=== PATIENT | female | born 1980 | race Caucasian/White ===

== ENCOUNTER 2020-12-14 14:35 | Emergency (ER) | payer OTHER, SELFPAY ==
--- NOTE | ~2020-12-14 | XR_ITS ---
EXAMINATION: XR CHEST CLINICAL INFORMATION: Chest tightness COMPARISON: None TECHNIQUE: 2 views of the chest were obtained. FINDINGS: No significant abnormality is noted involving the heart, lungs, mediastinum, bony thorax or soft tissues. XR/XR chest 2V IMPRESSION: Unremarkable examination.
--- NOTE | 2020-12-14 14:37 | ECG_ITS ---
Test Reason : SOB Blood Pressure : / mmHG Vent. Rate : 068 BPM Atrial Rate : 068 BPM P-R Int : 124 ms QRS Dur : 084 ms QT Int : 406 ms P-R-T Axes : 021 035 014 degrees QTc Int : 431 ms Normal sinus rhythm with sinus arrhythmia Normal ECG No previous ECGs available Referred By: Generic ED Physician Electronically Signed By:OUMOU DENIS MD
[2020-12-14 14:55] VITALS: BP 125/78; PULSE 65; RESP 18; TEMP 37; O2SAT 100; BMI 29.8
[2020-12-14 16:02] LABS: MANUAL DIFF FLAG NO
[2020-12-14 16:04] LABS: Basophils Percent Auto 0.2 % (0-2); Eosinophils Absolute Auto 0.2 X10*3/uL (0.0-0.4); Eosinophils Percent Auto 2.5 % (0-4); Hemoglobin 12.5 g/dl (12.0-16.0); Imm Gran Abs Auto 0.02 X10*3/uL (0.00-0.03); Imm Gran Pct Auto 0.2 % (0.0-0.4); Lymphocytes Absolute Auto 2.1 X10*3/uL (1.2-4.9); Lymphocytes Percent Auto 24.7 % (20-40); Mean Corpuscular HGB Conc 33.8 g/dl (31.0-35.0); Mean Corpuscular Hemoglobin 32.1 pg (27.0-33.0); Mean Corpuscular Volume 95.1 fL (80-98); Monocytes Absolute Auto 0.7 X10*3/uL (0.1-1.2); Neutrophils Absolute Auto 5.4 X10*3/uL (2.0-8.3); Neutrophils Percent Auto 64.4 % (45-73); Platelet Count 191 X10*3/uL (160-400); Red Blood Count 3.89 X10*6/uL (4.20-5.50); Red Cell Distribution Width 13.1 % (11.0-16.0); White Blood Count 8.4 X10*3/uL (4.8-10.8)
[2020-12-14 16:32] LABS: Alanine Aminotransferase 19 U/L (0-31); Albumin Level 4.2 g/dL (3.5-5.0); Alkaline Phosphatase 52 U/L (39-117); Anion Gap 12 (12-20); Aspartate Amino Transferase 17 U/L (5-31); Bilirubin Total 0.3 mg/dL (0.0-1.0); Blood Urea Nitrogen 13 mg/dL (9-16); Calcium 8.7 mg/dL (8.4-10.2); Carbon Dioxide 24 mmol/L (22-29); Chloride 108 mmol/L (96-108); Creatinine Clr Calc Pharmacy 113.3; Estimated Glomerular Filt Rate > 60; Glucose Random 105 mg/dL (60-115); Potassium 3.8 mmol/L (3.3-5.1); Sodium 140 mmol/L (135-145)
[2020-12-14 16:36] LABS: Troponin-I High Sensitivity < 3.5 ng/L (<3.5-17.0)
[2020-12-14 17:53] VITALS: BP 119/68; PULSE 61; RESP 12; TEMP 36.8; O2SAT 100
--- NOTE | 2020-12-14 18:16 | ED_ITS ---
HPI - General Adult General Chief complaint: General Medical Stated complaint: dizziness, lt arm pain Time Seen by Provider: 12/14/20 17:32 Source: patient Mode of arrival: ambulatory Limitations: no limitations History of Present Illness HPI narrative: 40-year-old female with a past medical history of asthma, solit randy kidney, migraines, seasonal allergies here with complaints of episode of nausea, clammy hands, chest tightness, dizziness at approximately 02:30 this afternoon while driving in her car which lasted 45 minutes and self-resolved. She tells me she also had some associated left arm pain. Patient tells me now all symptoms are resolved and she is feeling much improved. No associated shortness of breath, leg swelling or pain, cough, fevers, chills. Related Data Allergies Allergy/AdvReac Type Severity Reaction Status Date / Time latex Allergy Hives Verified 12/14/20 14:55 sulfamethoxazole Allergy Hives Verified 12/14/20 14:55 [From ] trimethoprim [From ] Allergy Hives Verified 12/14/20 14:55 NSAIDS (Non-Steroidal AdvReac Unknown Verified 12/14/20 14:55 Anti-Inflamma Review of Systems Review of Systems: Yes all other systems are reviewed and are negative Constitutional: Constitutional: Reports no additional constitutional complaints, Denies body ache(s), Denies chills, Denies fever(s), Denies headache(s) and Denies weakness Comments: Diaphoresis Eyes: Eyes: Reports no additional eye complaints and Denies change in vision ENT: Reports system reviewed and no additional complaints, except as documented, Reports dizziness, Denies headache(s), Denies nasal congestion, Denies nasal discharge and Denies neck pain Cardiovascular: Cardiovascular: Reports no additional cardiovascular complai nts, Reports chest pain, Denies leg edema and Denies dyspnea Respiratory: Respiratory: Reports no additional respiratory complaints, Denies cough and Denies dyspnea Gastrointestinal: Gastrointestinal: Reports no additional gastrointestinal complaints, Denies abdominal pain, Denies diarrhea, Reports nausea and Denies vomiting Genitourinary: Genitourinary: Reports no additional female genitourinary complaints and Denies urinary incontinence Musculoskeletal: Musculoskeletal: Reports no additional musculoskeletal complaints, Denies back pain, Denies arthralgias, Denies joint swelling, Denies neck pain, Denies numbness and Denies tingling Integumentary/Breasts: Skin/Breast: Reports system reviewed and no additional complaints, except as docu and Denies rash Neurologic: Reports system reviewed and no additional complaints, except as documented, Denies Abnormal speech present, Reports dizziness, Denies headache(s), Denies numbness, Denies tingling and Denies weakness PMFSH Past Medical History Attestation statement: The following information was validated with the patient. Source: old records reviewed and nursing notes reviewed Medical History Asthma Solitary kidney Social History Social History Advance Directives: No Advance Directives Information Provided: Yes Patient : No Physical Exam Vital Signs: Vital Signs: Last Vital Signs Temp 98.2 F 12/14/20 17:53 Pulse 61 12/14/20 17:53 Resp 12 12/14/20 17:53 BP 119/68 12/14/20 17:53 Pulse Ox 100 12/14/20 17:53 Body Mass Index 29.8 Const: General: cooperative, healthy appearing, comfortable and no acute distress Orientation/consciousness: patient oriented x3 Limitations: no limitations HENMT: Head: Yes normal to inspection Ears: hearing grossly normal bilaterally General nose exam: Normal external nose present Face and sinus: Yes normal facial exam Mouth: Normal oral and palatal mucosa present Throat: Yes posterior oropharynx normal Eyes: General: appearance normal, both eyes and all related structures Pupils: Equal, round and reactive pupils present Neck: Neck: Yes normal visual inspection, Yes full ROM, Yes no lymphadenopathy and Yes no meningeal signs Chest: Chest palpation & inspection: normal inspection of the chest Resp: Effort & Inspection: normal respiratory effort Auscultation: clear to auscultation bilaterally Cardio: Rate: regular rate Rhythm: regular rhythm Peripheral pulses: Peripheral pulses 2+ throughout GI: Inspection: Yes normal to inspection Palpation (GI): Soft to palpation and nontender Auscultation: normal bowel sounds Back/Spine/Pelvis: Thoracic/Lumbar Spine: thoracic and lumbar spine normal to inspection Skin: General skin exam: no rashes or lesions noted Neuro: General: patient oriented x3, no meningeal signs, no focal motor deficits and normal sensation to monofilament Cranial nerves: Yes CN's II-XII intact bilaterally, Yes Equal, round and reactive pupils present, Yes Bilaterall y intact EOM present, Yes Nystagmus not present, Yes Normal facial strength present and Yes Midline tongue present Cognition (Neuro): normal cognition Speech: No Abnormal speech present Gait exam (Neuro): Normal gait present Motor exam (neuro): 5/5 motor strength present throughout Sensory Exam: Normal double simultaneous stimulation for sensation Extrem: General: Yes normal to inspection, Yes no pedal edema and Yes no calf tenderness Course Course Course Narrative: 40-year-old female here with episode of nausea, clammy hands, chest tightness radiating into left arm, dizziness which occurred at 02:30 this afternoon while at rest and lasted approximately 45 minutes. All symptoms resolved while here in the emergency department. Will plan for chest x-ray, EKG, troponin x2. 1914-EKG, chest x-ray and labs unremarkable earlier troponin x2 negative. No symptoms since being here. Stable vital signs. Likely anxiety. Reviewed plan with the patient. Worrisome signs and symptoms when to return to the emergency department. Comfortable discharge home. Medical Decision Making MDM Narrative Medical decision making narrative: Anxiety, ACS PE less likely with perc 0 Less likely ACS with troponin x2 negative EKG which shows no ischemic changes a nd atypical chest pain Medical Records Medical records reviewed: Yes I reviewed the patient's medical records. Lab Data Lab results reviewed: Yes I reviewed the patient's lab results. Result diagrams: 12/14/20 15:56 12/14/20 15:56 Labs: Lab Results 12/14/20 12/14/20 12/14/20 Range/Units 15:56 15:56 15:56 WBC 8.4 (4.8-10.8) X10*3/uL RBC 3.89 L (4.20-5.50) X10*6/uL Hgb 12.5 (12.0-16.0) g/dl Hct 37.0 (37-47) % MCV 95.1 (80-98) fL MCH 32.1 (27.0-33.0) pg MCHC 33.8 (31.0-35.0) g/dl RDW 13.1 (11.0-16.0) % Plt Count 191 (160-400) X10*3/uL MPV 10.0 (9.4-12.3) fL Immature Gran % (Auto) 0.2 (0.0-0.4) % Neut % (Auto) 64.4 (45-73) % Lymph % (Auto) 24.7 (20-40) % [place] % (Auto) 8.0 (2-11) % Eos % (Auto) 2.5 (0-4) % Baso % (Auto) 0.2 (0-2) % Lymph # (Auto) 2.1 (1.2-4.9) X10*3/uL [place] # (Auto) 0.7 (0.1-1.2) X10*3/uL Eos # (Auto) 0.2 (0.0-0.4) X10*3/uL Baso # (Auto) 0.0 (0.0-0.2) X10*3/uL Abs Immat Gran (auto) 0.02 (0.00-0.03) X10*3/uL Absolute Neuts (auto) 5.4 (2.0-8.3) X10*3/uL Absolute Nucleated RBC 0.000 (0.0-0.012) X10*3/uL Nucleated RBC % (auto) 0.0 (0.0-0.2) /100WBC Sodium 140 (135-145) mmol/L Potassium 3.8 (3.3-5.1) mmol/L Chloride 108 (96-108) mmol/L Carbon Dioxide 24 (22-29) mmol/L Anion Gap 12 (12-20) BUN 13 (9-16) mg/dL Creatinine 0.72 (0.5-1.4) mg/dL Estim Creat Clear Calc 113.3 Estimated GFR > 60 Random Glucose 105 (60-115) mg/dL Calcium 8.7 (8.4-10.2) mg/dL Total Bilirubin 0.3 (0.0-1.0) mg/dL AST 17 (5-31) U/L ALT 19 (0-31) U/L Alkaline Phosphatase 52 (39-117) U/L Troponin I High Sens < 3.5 (<3.5-17.0) ng/L Total Protein 7.0 (6.5-8.0) g/dL Albumin 4.2 (3.5-5.0) g/dL 12/14/20 Range/Units 18:03 WBC (4.8-10.8) X10*3/uL RBC (4.20-5.50) X10*6/uL Hgb (12.0-16.0) g/dl Hct (37-47) % MCV (80-98) fL MCH (27.0-33.0) pg MCHC (31.0-35.0) g/dl RDW (11.0-16.0) % Plt Count (160-400) X10*3/uL MPV (9.4-12.3) fL Immature Gran % (Auto) (0.0-0.4) % Neut % (Auto) (45-73) % Lymph % (Auto) (20-40) % [place] % (Auto) (2-11) % Eos % (Auto) (0-4) % Baso % (Auto) (0-2) % Lymph # (Auto) (1.2-4.9) X10*3/uL [place] # (Auto) (0.1-1.2) X10*3/uL Eos # (Auto) (0.0-0.4) X10*3/uL Baso # (Auto) (0.0-0.2) X10*3/uL Abs Immat Gran (auto) (0.00-0.03) X10*3/uL Absolute Neuts (auto) (2.0-8.3) X10*3/uL Absolute Nucleated RBC (0.0-0.012) X10*3/uL Nucleated RBC % (auto) (0.0-0.2) /100WBC Sodium (135-145) mmol/L Potassium (3.3-5.1) mmol/L Chloride (96-108) mmol/L Carbon Dioxide (22-29) mmol/L Anion Gap (12-20) BUN (9-16) mg/dL Creatinine (0.5-1.4) mg/dL Estim Creat Clear Calc Estimated GFR Random Glucose (60-115) mg/dL Calcium (8.4-10.2) mg/dL Total Bilirubin (0.0-1.0) mg/dL AST (5-31) U/L ALT (0-31) U/L Alkaline Phosphatase (39-117) U/L Troponin I High Sens < 3.5 (<3.5-17.0) ng/L Total Protein (6.5-8.0) g/dL Albumin (3.5-5.0) g/dL Imaging Data Chest x-ray: Attestation: I personally reviewed and interpreted this imaging study as follows: Radiologist's impression: XAMINATION: XR CHEST CLINICAL INFORMATION: Chest tightness COMPARISON: None TECHNIQUE: 2 views of the chest were obtained. FINDINGS: No significant abnormality is noted involving the heart, lungs, mediastinum, bony thorax or soft tissues. XR/XR chest 2V IMPRESSION: Unremarkable examination. ECG Data Attestation: I personally reviewed and interpreted this ECG as follows: Interpretation: NSR with rate 68, normal pr, normal qr, normal wtc Discharge Plan Discharge Clinical Impression: Atypical chest pain Patient Disposition: Home, Self-Care Instructions: Chest Pain (ED) Additional Instructions: Your EKG, chest x-ray and heart levels all looked normal today Follow-up with primary care doctor as discussed Referrals: Lynne Marin MD [Primary Care Provider] - 2 days Interventions: ED Discharge Assessment Last Done: 12/14/20 19:32 Discharge Date/Time: 12/14/20 19:32
[2020-12-14 18:51] LABS: Troponin-I High Sensitivity < 3.5 ng/L (<3.5-17.0)
== END 2020-12-14 19:32 | disposition home or self-care (01) ==
PROVIDERS: Nurse Practitioner Family; Emergency Provider Internal Medicine; PCP Internal Medicine
DX: R07.89 Other chest pain (principal); R42 Dizziness and giddiness; M79.602 Pain in left arm; J45.909 Unspecified asthma, uncomplicated; Q60.0 Renal agenesis, unilateral
CPT/HCPCS: 36415; 71046; 80053; 84484; 85025; 93005; 99283

== ENCOUNTER 2022-08-11 13:27 | Emergency (ER) | payer OTHER, SELFPAY ==
[2022-08-11 14:09] VITALS: BP 136/85; PULSE 66; RESP 18; TEMP 36.7; O2SAT 100; BMI 29.5
--- NOTE | 2022-08-11 14:09 | ECG_ITS ---
Test Reason : HIGH BLOOD PRESSURE Blood Pressure : / mmHG Vent. Rate : 060 BPM Atrial Rate : 060 BPM P-R Int : 138 ms QRS Dur : 088 ms QT Int : 406 ms P-R-T Axes : 026 031 027 degrees QTc Int : 406 ms Normal sinus rhythm Normal ECG When compared with ECG of 14-DEC-2020 14:52, No significant change was found Referred By: Dexter Davis Electronically Signed By:OUMOU DENIS MD
--- NOTE | 2022-08-11 14:12 | ED.GENADULT ---
HPI - General Adult General Chief complaint: General Medical <PHILIP Hunt - Last Filed: 08/11/22 19:34> Stated complaint: HBP/Nausea/Fatigue <PHILIP Hunt - Last Filed: 08/11/22 19:34> Time Seen by Provider: 08/11/22 14:26 <PHILIP Hunt - Last Filed: 08/11/22 19:34> Source: patient <PHILIP Metz Last Filed: 08/11/22 18:17> Mode of arrival: ambulatory <PHILIP Metz Last Filed: 08/11/22 18:17> Limitations: no limitations <PHILIP Metz Last Filed: 08/11/22 18:17> History of Present Illness HPI narrative: Patient is a 42 year old assigned female at with a medical history of solitary kidney and asthma presenting to the emergency department today with nausea and a headache after her 2nd COVID-19 vaccination. Patient states that last Thursday she got her last COVID-19 vaccination and she began to have a headache and nausea. Patient states that she had an elevated blood pressure reading and due to that plus her symptoms, her PCP wanted her to come to the emergency department for evaluation. Patient denies any dizziness, lightheadedness, abdominal pain, nausea, fever, chills, blurry vision, double vision, loss of vision, chest pain, difficulty breathing, shortness of breath, back pain, night sweats, pain with urination, increased urinary frequency, increased urinary urgency, blood in her urine or stool, syncope or a near syncopal episode, recent trauma or falls, bowel incontinence, bladder incontinence, bowel retention, bladder retention, or any other complaints at this time. <PHILIP Metz - Last Filed: 08/11/22 18:17> Onset (ago): day(s) <PHILIP Metz Last Filed: 08/11/22 18:17> Location: head <PHILIP Metz Last Filed: 08/11/22 18:17> Severity: mild <PHILIP Metz Last Filed: 08/11/22 18:17> Severity scale (1-10): 2 <PHILIP Metz Last Filed: 08/11/22 18:17> Pain Consistency: constant <PHILIP Metz Last Filed: 08/11/22 18:17> Relieving factors: none <PHILIP Metz Last Filed: 08/11/22 18:17> Exacerbating factors: none <PHILIP Metz - Last Filed: 08/11/22 18:17> Associated symptoms: nausea/vomiting <PHILIP Metz - Last Filed: 08/11/22 18:17> Treatments prior to arrival: none <PHILIP Metz Last Filed: 08/11/22 18:17> Related Data Home medications: Previous Rx's Medication Instructions Recorded ondansetron 4 mg disintegrating 4 mg PO Q8H 3 days #9 tabs 08/11/22 tablet <PHILIP Hunt Last Filed: 08/11/22 19:34> Allergies/adverse reactions: Allergies Allergy/AdvReac Type Severity Reaction Status Date / Time latex Allergy Hives Verified 12/14/20 14:55 sulfamethoxazole Allergy Hives Verified 12/14/20 14:55 [From ] trimethoprim [From ] Allergy Hives Verified 12/14/20 14:55 NSAIDS (Non-Steroidal AdvReac Unknown Verified 12/14/20 14:55 Anti-Inflamma <PHILIP Hunt Last Filed: 08/11/22 19:34> Review of Systems Constitutional: Constitutional: Reports no additional constitutional complaints, Denies chills, Denies fever(s), Reports headache(s) and Denies night sweats <PHILIP Metz Last Filed: 08/11/22 18:17> Eyes: Eyes: Reports no additional eye complaints, Denies blurry vision, Denies change in vision, Denies diplopia, Denies eye discharge, Denies loss of vision and Denies eye pain <PHILIP Metz Last Filed: 08/11/22 18:17> ENT: Denies dizziness and Reports headache(s) <PHILIP Metz - Last Filed: 08/11/22 18:17> Cardiovascular: Cardiovascular: Reports no additional cardiovascular complaints, Denies chest pain, Denies lightheadedness, Denies Loss of Consciousness and Denies dyspnea <PHILIP Metz Last Filed: 08/11/22 18:17> Respiratory: Respiratory: Reports no additional respiratory complaints and Denies dyspnea <PHILIP Metz - Last Filed: 08/11/22 18:17> Gastrointestinal: Gastrointestinal: Reports no additional gastrointestinal complaints, Denies abdominal pain, Denies melena, Denies hematochezia, Denies change in bowel habits, Denies change in stool character and Reports nausea <PHILIP Metz - Last Filed: 08/11/22 18:17> Genitourinary: Genitourinary: Denies hematuria, Denies urinary frequency, Denies dysuria, Denies urinary incontinence, Denies urinary hesitancy and Denies urinary urgency <PHILIP Metz - Last Filed: 08/11/22 18:17> Musculoskeletal: Musculoskeletal: Reports no additional musculoskeletal complaints, Denies numbness and Denies tingling <PHILIP Metz - Last Filed: 08/11/22 18:17> Neurologic: Denies dizziness, Reports headache(s), Denies loss of vision, Denies numbness and Denies tingling <PHILIP Metz - Last Filed: 08/11/22 18:17> Psychiatric: Psychiatric: Reports no additional psychiatric complaints <PHILIP Metz - Last Filed: 08/11/22 18:17> Endocrine: Endocrine: Reports no additional endocrine complaints <PHILIP Metz - Last Filed: 08/11/22 18:17> Hematologic/Lymphatic: Hematologic/Lymphatic: Reports no additional hematologic/lymphatic complaints <PHILIP eMtz - Last Filed: 08/11/22 18:17> Allergic/Immunologic: Allergic/Immunologic: Reports no additional allergic/immunologic complaints <PHILIP Metz - Last Filed: 08/11/22 18:17> PMFSH Past Medical History Attestation statement: The following information was validated with the patient. <PHILIP Metz - Last Filed: 08/11/22 18:17> Source: old records reviewed and nursing notes reviewed <PHILIP Metz - Last Filed: 08/11/22 18:17> Medical History: Medical History Asthma Solitary kidney <PHILIP Hunt - Last Filed: 08/11/22 19:34> Social History Social History: Social History Advance Directives: No Advance Directives Information Provided: Yes <PHILIP Hunt - Last Filed: 08/11/22 19:34> Physical Exam ED Vital Signs: Vital Signs - 24 hr 08/11/22 14:09 Temperature 98.1 F Pulse Rate 66 Respiratory Rate 18 Blood Pressure 136/85 Pulse Oximetry 100 Oxygen Delivery Method Room Air BMI result Body Mass Index 29.5 <PHILIP Hunt - Last Filed: 08/11/22 19:34> Vital Signs - 24 hr 08/11/22 14:09 Temperature 98.1 F Pulse Rate 66 Respiratory Rate 18 Blood Pressure 136/85 Pulse Oximetry 100 Oxygen Delivery Method Room Air BMI result Body Mass Index 29.5 <PHILIP Metz - Last Filed: 08/11/22 18:17> Vital Signs - 24 hr 08/11/22 14:09 Temperature 98.1 F Pulse Rate 66 Respiratory Rate 18 Blood Pressure 136/85 Pulse Oximetry 100 Oxygen Delivery Method Room Air BMI result Body Mass Index 29.5 <Aubrey Ascencio MD - Last Filed: 08/11/22 22:26> Const General: cooperative, no acute distress, alert and awake <PHILIP Metz - Last Filed: 08/11/22 18:17> Nutritional Appearance: well nourished <PHILIP Metz - Last Filed: 08/11/22 18:17> Orientation/consciousness: patient oriented x3 <PHILIP Metz - Last Filed: 08/11/22 18:17> Limitations: no limitations <PHILIP Metz - Last Filed: 08/11/22 18:17> HENMT Head: Yes normal to inspection and Yes atraumatic <PHILIP Metz - Last Filed: 08/11/22 18:17> Ears: hearing grossly normal bilaterally and external ears normal <PHILIP Metz - Last Filed: 08/11/22 18:17> General nose exam: Normal external nose present, no nasal discharge noted and no epistaxis <PHILIP Metz - Last Filed: 08/11/22 18:17> Face and sinus: Yes normal facial exam, No abrasion and No laceration <Deedee Garvey RI - Last Filed: 08/11/22 18:17> Mouth: Normal oral and palatal mucosa present, no drooling and no muffled voice <Deedee Garvey RI - Last Filed: 08/11/22 18:17> Eyes General: appearance normal, both eyes and all related structures <Deedee Garvey PA - Last Filed: 08/11/22 18:17> Periorbital: periorbital findings normal <Deedee Garvey RI - Last Filed: 08/11/22 18:17> Eyelids: Yes eyelids normal <Deedee Garvey PA - Last Filed: 08/11/22 18:17> Conjunctivae: conjunctivae normal <Deedee Garvey RI - Last Filed: 08/11/22 18:17> Pupils: Equal, round and reactive pupils present <Deedee Garvey RI - Last Filed: 08/11/22 18:17> EOM: EOMs intact bilaterally <Deedee Garvey RI - Last Filed: 08/11/22 18:17> Neck Neck: Yes normal visual inspection, Yes full ROM and Yes no lymphadenopathy <Deedee Garvey RI - Last Filed: 08/11/22 18:17> Chest Chest palpation & inspection: normal inspection of the chest <Deedee Garvey RI - Last Filed: 08/11/22 18:17> Resp Effort & Inspection: normal respiratory effort and able to speak in complete sentences <PHILIP Metz - Last Filed: 08/11/22 18:17> Auscultation: clear to auscultation bilaterally <Deedee Garvey RI - Last Filed: 08/11/22 18:17> Cardio Rate: regular rate <Deedee Garvey PA - Last Filed: 08/11/22 18:17> Rhythm: regular rhythm <Deedee Garvey RI - Last Filed: 08/11/22 18:17> GI Inspection: Yes normal to inspection <Deedee Garvey PA - Last Filed: 08/11/22 18:17> Palpation (GI): Soft to palpation, not firm, nontender and no guarding <Deedee Garvey RI - Last Filed: 08/11/22 18:17> Neuro General: patient oriented x3 and moves all extremities <PHILIP Metz - Last Filed: 08/11/22 18:17> Cranial nerves: Yes Equal, round and reactive pupils present <PHILIP Metz - Last Filed: 08/11/22 18:17> Cognition (Neuro): normal cognition <PHILIP Metz - Last Filed: 08/11/22 18:17> Motor exam (neuro): 5/5 motor strength present throughout <PHILIP Metz - Last Filed: 08/11/22 18:17> Sensory Exam: Normal double simultaneous stimulation for sensation <Deedee Garvey PA - Last Filed: 08/11/22 18:17> Coordination: [id number] test normal <PHILIP Metz - Last Filed: 08/11/22 18:17> Extrem General: Yes normal to inspection, Yes full ROM and Yes capillary refill normal <PHILIP Metz - Last Filed: 08/11/22 18:17> Psych Appearance: grossly normal <PHILIP Metz - Last Filed: 08/11/22 18:17> Mental Status: mental status grossly normal <PHILIP Metz - Last Filed: 08/11/22 18:17> Affect: normal affect <PHILIP Metz - Last Filed: 08/11/22 18:17> Attitude: cooperative <PHILIP Metz - Last Filed: 08/11/22 18:17> Thought process: Normal thought process present <PHILIP Metz - Last Filed: 08/11/22 18:17> Thought content: Normal thought content present <PHILIP Metz - Last Filed: 08/11/22 18:17> Insight: Good insight present (Psych) <PHILIP Metz - Last Filed: 08/11/22 18:17> Course Course Course Narrative: RME: 42 yold female presents to the ED for headache, nausea, and epigastric discomfort. Patient denies any nuero/stroke symptoms. patient blood pressure once was systolic 140 and diastolic 116. physical exam has no neuro defecits. negative rhomberg. Vital signs stable. EKG/labs ordered. <PHILIP Hunt - Last Filed: 08/11/22 19:34> Medical Decision Making Medical Decision Making [facility] Narrative: Patient is a 42 year old assigned female at with a history of solitary kidney and asthma presenting to the emergency department today with a headache and nausea. Patient's physical exam was unremarkable. Patient's blood work was unremarkable. Patient's EKG was unremarkable. I explained my physical exam findings as well as all test results to the patient. I answered all questions asked by the patient. I stressed the importance of the patient taking her medication as prescribed. I stressed the importance of the patient following up with her primary care provider. I stressed the importance of the patient returning to the emergency department immediately if her symptoms were to worsen or if she were to develop any dizziness, shortness of breath, difficulty breathing, chest pain, blurry vision, loss of vision, nausea, vomiting, abdominal pain, fever, chills, back pain, or any other complaints. Patient verbalized agreement and understanding with this treatment plan and discharge. <PHILIP Metz - Last Filed: 08/11/22 18:17> Differential Diagnosis Differential Diagnoses: The differential diagnosis associated with the presentation includes <PHILIP Metz - Last Filed: 08/11/22 18:17> nausea, side effect of vaccine <PHILIP Metz - Last Filed: 08/11/22 18:17> Lab Data [facility] Lab Attestation statement: I reviewed the patient's lab results. <PHILIP Metz - Last Filed: 08/11/22 18:17> Result Diagrams: 08/11/22 15:06 08/11/22 15:06 <PHILIP Hunt - Last Filed: 08/11/22 19:34> Labs: Lab Results 08/11/22 08/11/22 08/11/22 Range/Units 15:06 15:06 15:06 WBC 6.6 (4.8-10.8) X10*3/uL RBC 4.09 L (4.20-5.50) X10*6/uL Hgb 13.4 (12.0-16.0) g/dl Hct 38.1 (37.0-47.0) % MCV 93.2 (80.0-98.0) fL MCH 32.8 (27.0-33.0) pg MCHC 35.2 H (31.0-35.0) g/dl RDW 11.7 (11.0-16.0) % Plt Count 220 (160-400) X10*3/uL MPV 9.6 (9.4-12.3) fL Immature Gran % (Auto) 0.2 (0.0-0.4) % Neut % (Auto) 57.1 (45-73) % Lymph % (Auto) 33.0 (20-40) % [place] % (Auto) 7.6 (2-11) % Eos % (Auto) 1.8 (0-4) % Baso % (Auto) 0.3 (0-2) % Lymph # (Auto) 2.2 (1.2-4.9) X10*3/uL [place] # (Auto) 0.5 (0.1-1.2) X10*3/uL Eos # (Auto) 0.1 (0.0-0.4) X10*3/uL Baso # (Auto) 0.0 (0.0-0.2) X10*3/uL Abs Immat Gran (auto) 0.01 (0.00-0.03) X10*3/uL Absolute Neuts (auto) 3.7 (2.0-8.3) x10*3/uL Absolute Nucleated RBC 0.000 (0.0-0.012) X10*3/uL Nucleated RBC % (auto) 0.0 (0.0-0.2) /100WBC PT 11.8 (10.0-13.1) SEC INR 1.0 (0.9-1.1) APTT 30.5 (26.0-36.4) SEC Sodium 138 (135-145) mmol/L Potassium 4.4 (3.3-5.1) mmol/L Chloride 107 (96-108) mmol/L Carbon Dioxide 25 (22-29) mmol/L Anion Gap 10 L (12-20) BUN 14 (9-16) mg/dL Creatinine 0.73 (0.5-1.4) mg/dL Estim Creat Clear Calc 109.0 Estimated GFR > 60 Random Glucose 82 (60-115) mg/dL Calcium 9.2 (8.4-10.2) mg/dL Total Bilirubin 0.4 (0.0-1.0) mg/dL AST 17 (5-31) U/L ALT 24 (0-31) U/L Alkaline Phosphatase 51 (39-117) U/L Troponin I High Sens (<3.5-17.0) ng/L Total Protein 7.1 (6.5-8.0) g/dL Albumin 4.3 (3.5-5.0) g/dL Lipase 22 (8-78) U/L Beta HCG, Quant < 2 mIU/mL Urine Test (NEGATIVE) Influenza Type A (PCR) (Negative) Influenza Type B (PCR) (Negative) RSV RNA Qual (PCR) (Negative) SARS-CoV-2 RNA (RT-PCR) (Negative) 08/11/22 08/11/22 08/11/22 Range/Units 15:06 15:06 15:06 WBC (4.8-10.8) X10*3/uL RBC (4.20-5.50) X10*6/uL Hgb (12.0-16.0) g/dl Hct (37.0-47.0) % MCV (80.0-98.0) fL MCH (27.0-33.0) pg MCHC (31.0-35.0) g/dl RDW (11.0-16.0) % Plt Count (160-400) X10*3/uL MPV (9.4-12.3) fL Immature Gran % (Auto) (0.0-0.4) % Neut % (Auto) (45-73) % Lymph % (Auto) (20-40) % [place] % (Auto) (2-11) % Eos % (Auto) (0-4) % Baso % (Auto) (0-2) % Lymph # (Auto) (1.2-4.9) X10*3/uL [place] # (Auto) (0.1-1.2) X10*3/uL Eos # (Auto) (0.0-0.4) X10*3/uL Baso # (Auto) (0.0-0.2) X10*3/uL Abs Immat Gran (auto) (0.00-0.03) X10*3/uL Absolute Neuts (auto) (2.0-8.3) x10*3/uL Absolute Nucleated RBC (0.0-0.012) X10*3/uL Nucleated RBC % (auto) (0.0-0.2) /100WBC PT (10.0-13.1) SEC INR (0.9-1.1) APTT (26.0-36.4) SEC Sodium (135-145) mmol/L Potassium (3.3-5.1) mmol/L Chloride (96-108) mmol/L Carbon Dioxide (22-29) mmol/L Anion Gap (12-20) BUN (9-16) mg/dL Creatinine (0.5-1.4) mg/dL Estim Creat Clear Calc Estimated GFR Random Glucose (60-115) mg/dL Calcium (8.4-10.2) mg/dL Total Bilirubin (0.0-1.0) mg/dL AST (5-31) U/L ALT (0-31) U/L Alkaline Phosphatase (39-117) U/L Troponin I High Sens < 3.5 (<3.5-17.0) ng/L Total Protein (6.5-8.0) g/dL Albumin (3.5-5.0) g/dL Lipase (8-78) U/L Beta HCG, Quant mIU/mL Urine Test NEGATIVE (NEGATIVE) Influenza Type A (PCR) NEGATIVE (Negative) Influenza Type B (PCR) NEGATIVE (Negative) RSV RNA Qual (PCR) NEGATIVE (Negative) SARS-CoV-2 RNA (RT-PCR) NEGATIVE (Negative) <PHILIP Hnut - Last Filed: 08/11/22 19:34> Lab Results 08/11/22 08/11/22 08/11/22 Range/Units 15:06 15:06 15:06 WBC 6.6 (4.8-10.8) X10*3/uL RBC 4.09 L (4.20-5.50) X10*6/uL Hgb 13.4 (12.0-16.0) g/dl Hct 38.1 (37.0-47.0) % MCV 93.2 (80.0-98.0) fL MCH 32.8 (27.0-33.0) pg MCHC 35.2 H (31.0-35.0) g/dl RDW 11.7 (11.0-16.0) % Plt Count 220 (160-400) X10*3/uL MPV 9.6 (9.4-12.3) fL Immature Gran % (Auto) 0.2 (0.0-0.4) % Neut % (Auto) 57.1 (45-73) % Lymph % (Auto) 33.0 (20-40) % [place] % (Auto) 7.6 (2-11) % Eos % (Auto) 1.8 (0-4) % Baso % (Auto) 0.3 (0-2) % Lymph # (Auto) 2.2 (1.2-4.9) X10*3/uL [place] # (Auto) 0.5 (0.1-1.2) X10*3/uL Eos # (Auto) 0.1 (0.0-0.4) X10*3/uL Baso # (Auto) 0.0 (0.0-0.2) X10*3/uL Abs Immat Gran (auto) 0.01 (0.00-0.03) X10*3/uL Absolute Neuts (auto) 3.7 (2.0-8.3) x10*3/uL Absolute Nucleated RBC 0.000 (0.0-0.012) X10*3/uL Nucleated RBC % (auto) 0.0 (0.0-0.2) /100WBC PT 11.8 (10.0-13.1) SEC INR 1.0 (0.9-1.1) APTT 30.5 (26.0-36.4) SEC Sodium 138 (135-145) mmol/L Potassium 4.4 (3.3-5.1) mmol/L Chloride 107 (96-108) mmol/L Carbon Dioxide 25 (22-29) mmol/L Anion Gap 10 L (12-20) BUN 14 (9-16) mg/dL Creatinine 0.73 (0.5-1.4) mg/dL Estim Creat Clear Calc 109.0 Estimated GFR > 60 Random Glucose 82 (60-115) mg/dL Calcium 9.2 (8.4-10.2) mg/dL Total Bilirubin 0.4 (0.0-1.0) mg/dL AST 17 (5-31) U/L ALT 24 (0-31) U/L Alkaline Phosphatase 51 (39-117) U/L Troponin I High Sens (<3.5-17.0) ng/L Total Protein 7.1 (6.5-8.0) g/dL Albumin 4.3 (3.5-5.0) g/dL Lipase 22 (8-78) U/L Beta HCG, Quant < 2 mIU/mL Urine Test (NEGATIVE) Influenza Type A (PCR) (Negative) Influenza Type B (PCR) (Negative) RSV RNA Qual (PCR) (Negative) SARS-CoV-2 RNA (RT-PCR) (Negative) 08/11/22 08/11/22 08/11/22 Range/Units 15:06 15:06 15:06 WBC (4.8-10.8) X10*3/uL RBC (4.20-5.50) X10*6/uL Hgb (12.0-16.0) g/dl Hct (37.0-47.0) % MCV (80.0-98.0) fL MCH (27.0-33.0) pg MCHC (31.0-35.0) g/dl RDW (11.0-16.0) % Plt Count (160-400) X10*3/uL MPV (9.4-12.3) fL Immature Gran % (Auto) (0.0-0.4) % Neut % (Auto) (45-73) % Lymph % (Auto) (20-40) % [place] % (Auto) (2-11) % Eos % (Auto) (0-4) % Baso % (Auto) (0-2) % Lymph # (Auto) (1.2-4.9) X10*3/uL [place] # (Auto) (0.1-1.2) X10*3/uL Eos # (Auto) (0.0-0.4) X10*3/uL Baso # (Auto) (0.0-0.2) X10*3/uL Abs Immat Gran (auto) (0.00-0.03) X10*3/uL Absolute Neuts (auto) (2.0-8.3) x10*3/uL Absolute Nucleated RBC (0.0-0.012) X10*3/uL Nucleated RBC % (auto) (0.0-0.2) /100WBC PT (10.0-13.1) SEC INR (0.9-1.1) APTT (26.0-36.4) SEC Sodium (135-145) mmol/L Potassium (3.3-5.1) mmol/L Chloride (96-108) mmol/L Carbon Dioxide (22-29) mmol/L Anion Gap (12-20) BUN (9-16) mg/dL Creatinine (0.5-1.4) mg/dL Estim Creat Clear Calc Estimated GFR Random Glucose (60-115) mg/dL Calcium (8.4-10.2) mg/dL Total Bilirubin (0.0-1.0) mg/dL AST (5-31) U/L ALT (0-31) U/L Alkaline Phosphatase (39-117) U/L Troponin I High Sens < 3.5 (<3.5-17.0) ng/L Total Protein (6.5-8.0) g/dL Albumin (3.5-5.0) g/dL Lipase (8-78) U/L Beta HCG, Quant mIU/mL Urine Test NEGATIVE (NEGATIVE) Influenza Type A (PCR) NEGATIVE (Negative) Influenza Type B (PCR) NEGATIVE (Negative) RSV RNA Qual (PCR) NEGATIVE (Negative) SARS-CoV-2 RNA (RT-PCR) NEGATIVE (Negative) <PHILIP Metz - Last Filed: 08/11/22 18:17> Lab Results 08/11/22 08/11/22 08/11/22 Range/Units 15:06 15:06 15:06 WBC 6.6 (4.8-10.8) X10*3/uL RBC 4.09 L (4.20-5.50) X10*6/uL Hgb 13.4 (12.0-16.0) g/dl Hct 38.1 (37.0-47.0) % MCV 93.2 (80.0-98.0) fL MCH 32.8 (27.0-33.0) pg MCHC 35.2 H (31.0-35.0) g/dl RDW 11.7 (11.0-16.0) % Plt Count 220 (160-400) X10*3/uL MPV 9.6 (9.4-12.3) fL Immature Gran % (Auto) 0.2 (0.0-0.4) % Neut % (Auto) 57.1 (45-73) % Lymph % (Auto) 33.0 (20-40) % [place] % (Auto) 7.6 (2-11) % Eos % (Auto) 1.8 (0-4) % Baso % (Auto) 0.3 (0-2) % Lymph # (Auto) 2.2 (1.2-4.9) X10*3/uL [place] # (Auto) 0.5 (0.1-1.2) X10*3/uL Eos # (Auto) 0.1 (0.0-0.4) X10*3/uL Baso # (Auto) 0.0 (0.0-0.2) X10*3/uL Abs Immat Gran (auto) 0.01 (0.00-0.03) X10*3/uL Absolute Neuts (auto) 3.7 (2.0-8.3) x10*3/uL Absolute Nucleated RBC 0.000 (0.0-0.012) X10*3/uL Nucleated RBC % (auto) 0.0 (0.0-0.2) /100WBC PT 11.8 (10.0-13.1) SEC INR 1.0 (0.9-1.1) APTT 30.5 (26.0-36.4) SEC Sodium 138 (135-145) mmol/L Potassium 4.4 (3.3-5.1) mmol/L Chloride 107 (96-108) mmol/L Carbon Dioxide 25 (22-29) mmol/L Anion Gap 10 L (12-20) BUN 14 (9-16) mg/dL Creatinine 0.73 (0.5-1.4) mg/dL Estim Creat Clear Calc 109.0 Estimated GFR > 60 Random Glucose 82 (60-115) mg/dL Calcium 9.2 (8.4-10.2) mg/dL Total Bilirubin 0.4 (0.0-1.0) mg/dL AST 17 (5-31) U/L ALT 24 (0-31) U/L Alkaline Phosphatase 51 (39-117) U/L Troponin I High Sens (<3.5-17.0) ng/L Total Protein 7.1 (6.5-8.0) g/dL Albumin 4.3 (3.5-5.0) g/dL Lipase 22 (8-78) U/L Beta HCG, Quant < 2 mIU/mL Urine Test (NEGATIVE) Influenza Type A (PCR) (Negative) Influenza Type B (PCR) (Negative) RSV RNA Qual (PCR) (Negative) SARS-CoV-2 RNA (RT-PCR) (Negative) 08/11/22 08/11/22 08/11/22 Range/Units 15:06 15:06 15:06 WBC (4.8-10.8) X10*3/uL RBC (4.20-5.50) X10*6/uL Hgb (12.0-16.0) g/dl Hct (37.0-47.0) % MCV (80.0-98.0) fL MCH (27.0-33.0) pg MCHC (31.0-35.0) g/dl RDW (11.0-16.0) % Plt Count (160-400) X10*3/uL MPV (9.4-12.3) fL Immature Gran % (Auto) (0.0-0.4) % Neut % (Auto) (45-73) % Lymph % (Auto) (20-40) % [place] % (Auto) (2-11) % Eos % (Auto) (0-4) % Baso % (Auto) (0-2) % Lymph # (Auto) (1.2-4.9) X10*3/uL [place] # (Auto) (0.1-1.2) X10*3/uL Eos # (Auto) (0.0-0.4) X10*3/uL Baso # (Auto) (0.0-0.2) X10*3/uL Abs Immat Gran (auto) (0.00-0.03) X10*3/uL Absolute Neuts (auto) (2.0-8.3) x10*3/uL Absolute Nucleated RBC (0.0-0.012) X10*3/uL Nucleated RBC % (auto) (0.0-0.2) /100WBC PT (10.0-13.1) SEC INR (0.9-1.1) APTT (26.0-36.4) SEC Sodium (135-145) mmol/L Potassium (3.3-5.1) mmol/L Chloride (96-108) mmol/L Carbon Dioxide (22-29) mmol/L Anion Gap (12-20) BUN (9-16) mg/dL Creatinine (0.5-1.4) mg/dL Estim Creat Clear Calc Estimated GFR Random Glucose (60-115) mg/dL Calcium (8.4-10.2) mg/dL Total Bilirubin (0.0-1.0) mg/dL AST (5-31) U/L ALT (0-31) U/L Alkaline Phosphatase (39-117) U/L Troponin I High Sens < 3.5 (<3.5-17.0) ng/L Total Protein (6.5-8.0) g/dL Albumin (3.5-5.0) g/dL Lipase (8-78) U/L Beta HCG, Quant mIU/mL Urine Test NEGATIVE (NEGATIVE) Influenza Type A (PCR) NEGATIVE (Negative) Influenza Type B (PCR) NEGATIVE (Negative) RSV RNA Qual (PCR) NEGATIVE (Negative) SARS-CoV-2 RNA (RT-PCR) NEGATIVE (Negative) <Aubrey Ascencio MD - Last Filed: 08/11/22 22:26> Independent Interpretation I performed an independent interpretation of an: EKG <PHILIP Metz - Last Filed: 08/11/22 18:17> Interpretation: Vent. Rate: 060 BPM ? ? Atrial Rate: 060 BPM P-R Int: 138 ms? QRS Dur: 088 ms QT Int: 406 ms ? ? ? P-R-T Axes: 026 031 027 degrees QTc Int: 406 ms ? Normal sinus rhythm Normal ECG When compared with ECG of 14-DEC-2020 14:52, No significant change was found ? DD/ [id number] <PHILIP Metz - Last Filed: 08/11/22 18:17> Attestation Attending Attestation: I reviewed CLINICAL TRIAL HEAD/PA/Resident note, assessment and plan. I agree with the documentation, assessment and plan unless otherwise stated. <Aubrey Ascencio MD - Last Filed: 08/11/22 22:26> Discharge Plan Discharge Clinical Impression: Nausea <PHILIP Hunt - Last Filed: 08/11/22 19:34> Patient Disposition: Home, Self-Care <PHILIP Hunt - Last Filed: 08/11/22 19:34> Instructions: Acute Nausea and Vomiting (ED) <PHILIP Hunt - Last Filed: 08/11/22 19:34> Additional Instructions: Follow up with your primary care provider. Return to the emergency department immediately if your symptoms worsen or if you develop any dizziness, shortness of breath, difficulty breathing, chest pain, blurry vision, loss of vision, nausea, vomiting, abdominal pain, fever, chills, back pain, or any other complaints. <PHILIP Hunt - Last Filed: 08/11/22 19:34> Prescriptions: New ondansetron 4 mg tablet,disintegrating 4 mg PO Q8H 3 Days Qty: 9 0RF <PHILIP Hunt - Last Filed: 08/11/22 19:34> [place] [facility] [place] [facility] [place] (Call to establish and follow up with a primary care provider. If you already have a primary care provider, please follow up with them. ) [facility] [place] Group] (Call to establish and follow up with a primary care provider. If you already have a primary care provider, please follow up with them. ) [facility] [place]] (Call to establish and follow up with a primary care provider. If you already have a primary care provider, please follow up with them. ) <PHILIP Hunt - Last Filed: 08/11/22 19:34> Stand Alone Forms: Work/School Release <PHILIP Hunt - Last Filed: 08/11/22 19:34> Interventions: ED Discharge Assessment Last Done: 08/11/22 16:23 <PHILIP Hunt Last Filed: 08/11/22 19:34> Discharge Date/Time: 08/11/22 16:23 <PHILIP Hunt Last Filed: 08/11/22 19:34> Print Language: Irish <PHILIP Hunt - Last Filed: 08/11/22 19:34>
--- OUTSIDE RECORDS SUMMARY | 2022-08-11 14:49 | XMS_ITS | Continuity of Care Document ---
:1980 Author Organization [facility] Address [address] [place] [id number]- Care Team Providers Name Role Phone Shira PORTILLO, Christian Woodruff Primary Care Physician Unavailable Encounter [facility] [place] Date(s): 11/25/21 - 02/20/[address] [address]- Attending Physician: Julissa Purdy Admitting Physician: Julissa Purdy Referring Physician: Julissa Purdy Allergies, Adverse Reactions, Alerts Substance Reaction Severity Status Septra purple spots in feet Active Motrin1 Active Latex Active 1can take due to one kidney Medications Albuterol 200, mcg, Inhalation, Every 4 hours, 96 each, , , 11/18/05 15:50:20, Print LUIS FERNANDO Number, ADS OPPTHS, 51, Constant Indicator Start Date: 11/18/05 Stop Date: 11/13/06 Status: Orderedalbuterol 0.083% inhalation solution 3 mL = 2.5 mg, Inhalation, Every 6 hours, PRN for wheezing, # 25 each, 0 Refills, Maintenance, 08/17/15 9:05:08, Solution Start Date: 08/17/15 Status: OrderedClaritin Tablet 10 mg, By Mouth, Daily, Maintenance, 08/17/15 9:07:20 Start Date: 08/17/15 Status: OrderedFioricet Tablet 1 tablet, By Mouth, Every 4 hours, PRN Headache, 0 Refills, Maintenance, 12/27/15 18:46:21, Tablet Start Date: 12/27/15 Status: OrderedHydrOXYzine 0 Refills, Maintenance, 12/25/21 6:20:00 EDT, Partial fill upon patient request if the prescription is for a schedule II opioid drug. Start Date: 12/25/21 Status: OrderedLorazepam 0 Refills, Maintenance, 12/25/21 6:20:00 EDT, Partial fill upon patient request if the prescription is for a schedule II opioid drug. Start Date: 12/25/21 Status: OrderedMelatonin 10 mg oral capsule 1 capsule = 10 mg, By Mouth, Daily at bedtime, 0 Refills, Maintenance, 08/17/15 9:04:00 Start Date: 08/17/15 Status: OrderedMultivitamin By Mouth, Daily, 0 Refills, Maintenance, 08/17/15 9:04:40 Start Date: 08/17/15 Status: Ordered Problem List Condition Effective Dates Status Health Status Informant Renal agenesis and Active dysgenesis(Confirmed) Urinary tract infectious Active disease(Confirmed) Social History Social History Type Response Smoking Status Never smoker entered on: 03/17/18 Sex
--- OUTSIDE RECORDS SUMMARY | 2022-08-11 14:49 | XMS_ITS | Continuity of Care Document ---
:1980 Author Organization [facility] Address [address] [place] [address]- Care Team Providers Name Role Phone Shira PORTILLO, Christian Woodruff Primary Care Physician Unavailable Encounter [facility] Date(s): 04/13/22 - 04/14/[address] [address]- Encounter Diagnosis COVID-19 (Final) - 04/14/22 Discharge Disposition: A-D/C Home Attending Physician: Louis Moreno MD Admitting Physician: Louis Moreno MD Referring Physician: Not on Staff, Referring MD Allergies, Adverse Reactions, Alerts Substance Reaction Severity Status Septra purple spots in feet Active Motrin1 Active Latex Active 1can take due to one kidney Medications Albuterol 200, mcg, Inhalation, Every 4 hours, 96 each, , 11, 11/18/05 15:50:20, Print LUIS FERNANDO Number, ADS OPPTHS, 51, Constant Indicator Start Date: 11/18/05 Stop Date: 11/13/06 Status: Orderedalbuterol 0.083% inhalation solution 3 mL = 2.5 mg, Inhalation, Every 6 hours, PRN for wheezing, # 25 each, 0 Refills, Maintenance, 08/17/15 9:05:08, Solution Start Date: 08/17/15 Status: Orderedcalcium-vitamin D 250 mg-200 intl units oral tablet 1 tablet, By Mouth, 2 times a day, # 150 tablet, 0 Refills, Maintenance, 04/13/22 20:56:00 EDT, Tablet, Partial fill upon patient request if the prescription is for a schedule II opioid drug. Start Date: 04/13/22 Status: OrderedClaritin Tablet 10 mg, By Mouth, [...] Maintenance, 08/17/15 9:04:40 Start Date: 08/17/15 Status: OrderedTylenol 325 mg oral tablet 650 mg, Tablet, By Mouth, Once, PRN for Pain , Mild, Routine, 04/13/22 22:29:00 EDT Start Date: 04/13/22 Stop Date: 04/13/22 Status: Completed Problem List Condition Confirmation Course Effective Dates Status Health Stat us Informant COVID-191 Confirmed 04/14/22 Active Obese class I Confirmed Active Renal agenesis and Confirmed Active dysgenesis Urinary tract Confirmed Active infectious disease 1Problem added by Discern Expert Vital Signs Most recent to oldest 1 2 3 [Reference Range]: Height 168 cm 168 cm 168 cm (04/14/22 12:32 AM) (04/13/22 10:04 PM) (04/13/22 8:52 PM) Weight 90.5 kg 90.5 kg 90.5 kg (04/14/22 12:32 AM) (04/13/22 10:04 PM) (04/13/22 8:52 PM) Oxygen Saturation [94-100 100 % 100 % 100 % %] (04/14/22 12:32 AM) (04/13/22 10:04 PM) (04/13/22 8:52 PM) Pulse Rate [55-90 bpm] 74 bpm 88 bpm 100 bpm (04/14/22 12:32 AM) (04/13/22 10:04 PM) *H* (04/13/22 8:52 PM ) Body Mass Index [18.5-24.99 32.06 kg/m2 32.06 kg/m2 kg/m2] *>HHI* *>HHI* (04/14/22 12:32 AM) (04/13/22 10:04 PM) Blood Pressure 138/85 mm Hg 150/82 mm Hg 139/90 mm Hg [90-138/55-84 mm Hg] (04/14/22 12:32 AM) *H* *H* (04/13/22 10:04 PM) (04/13/22 8:52 PM) Respiratory Rate [16-30 18 br/min 18 br/min 20 br/mi n br/min] (04/14/22 12:32 AM) (04/13/22 11:04 PM) (04/13/22 10:04 PM) Temperature [96.8-100.4 98.9 DegF 98.7 DegF 96.8 Deg F DegF] (04/14/22 12:32 AM) (04/13/22 10:04 PM) (04/13/22 8:52 PM) Mode of Delivery (Oxygen) Room air Room air Room a ir (04/14/22 12:32 AM) (04/13/22 10:04 PM) (04/13/22 8:52 PM) Blood pressure sites Arm, right Arm, right Arm, left (04/14/22 12:32 AM) (04/13/22 10:04 PM) (04/13/22 8:52 PM) Temperature Route Oral Temporal Temporal (04/14/22 12:32 AM) (04/13/22 10:04 PM) (04/13/22 8:52 PM) Dry Weight 90.5 kg 90.5 kg 90.5 kg (04/14/22 12:32 AM) (04/13/22 10:04 PM) (04/13/22 8:52 PM) Weight Obtained Via Standing scale (04/13/22 8:52 PM) Dry Weight Obtained Via Standing scale (04/13/22 8:52 PM) Social History Social History Type Response Smoking Status Never smoker entered on: 03/17/18 Sex Patient Care team information PersonnelName: Shira PORTILLO, Christian Woodruff
[2022-08-11 15:12] LABS: MANUAL DIFF FLAG NO
[2022-08-11 15:13] LABS: Basophils Percent Auto 0.3 % (0-2); Eosinophils Absolute Auto 0.1 X10*3/uL (0.0-0.4); Eosinophils Percent Auto 1.8 % (0-4); Hematocrit 38.1 % (37.0-47.0); Hemoglobin 13.4 g/dl (12.0-16.0); Imm Gran Abs Auto 0.01 X10*3/uL (0.00-0.03); Imm Gran Pct Auto 0.2 % (0.0-0.4); Lymphocytes Absolute Auto 2.2 X10*3/uL (1.2-4.9); Mean Corpuscular HGB Conc 35.2 g/dl (31.0-35.0); Mean Corpuscular Hemoglobin 32.8 pg (27.0-33.0); Mean Corpuscular Volume 93.2 fL (80.0-98.0); Mean Platelet Volume 9.6 fL (9.4-12.3); Monocytes Absolute Auto 0.5 X10*3/uL (0.1-1.2); Monocytes Percent Auto 7.6 % (2-11); Neutrophils Absolute Auto 3.7 x10*3/uL (2.0-8.3); Neutrophils Percent Auto 57.1 % (45-73); Platelet Count 220 X10*3/uL (160-400); Red Blood Count 4.09 X10*6/uL (4.20-5.50); Red Cell Distribution Width 11.7 % (11.0-16.0); White Blood Count 6.6 X10*3/uL (4.8-10.8)
[2022-08-11 15:21] LABS: Prothrombin Time 11.8 SEC (10.0-13.1)
[2022-08-11 15:24] LABS: Partial Thromboplastin Time 30.5 SEC (26.0-36.4)
[2022-08-11 15:26] LABS: UPreg QC Valid YES; Urine Pregnancy NEGATIVE (NEGATIVE)
[2022-08-11 15:35] LABS: Alanine Aminotransferase 24 U/L (0-31); Albumin Level 4.3 g/dL (3.5-5.0); Alkaline Phosphatase 51 U/L (39-117); Anion Gap 10 (12-20); Aspartate Amino Transferase 17 U/L (5-31); Bilirubin Total 0.4 mg/dL (0.0-1.0); Blood Urea Nitrogen 14 mg/dL (9-16); Calcium 9.2 mg/dL (8.4-10.2); Carbon Dioxide 25 mmol/L (22-29); Chloride 107 mmol/L (96-108); Estimated Glomerular Filt Rate > 60; Glucose Random 82 mg/dL (60-115); HCG Quantitative < 2 mIU/mL; Lipase 22 U/L (8-78); Potassium 4.4 mmol/L (3.3-5.1); Sodium 138 mmol/L (135-145); Total Protein 7.1 g/dL (6.5-8.0); Troponin-I High Sensitivity < 3.5 ng/L (<3.5-17.0)
[2022-08-11 15:59] LABS: Influenza A PCR NEGATIVE (Negative); Influenza B PCR NEGATIVE (Negative); Resp Syncy Virus RNA Qual PCR NEGATIVE (Negative); SARS COV2 PCR INHOUSE NEGATIVE (Negative)
== END 2022-08-11 16:23 | disposition home or self-care (01) ==
PROVIDERS: Physician Assistant; Emergency Provider Emergency Medicine
DX: R11.0 Nausea (principal); R51.9 Headache, unspecified; Z20.822 Contact with and (suspected) exposure to COVID-19; Z20.828 Contact with and (suspected) exposure to other viral communicable diseases
CPT/HCPCS: 0241U; 36415; 80053; 81025; 83690; 84484; 84702; 85025; 85610; 85730; 93005; 99283

== ENCOUNTER 2023-02-17 18:00 | Emergency (ER) | payer OTHER, SELFPAY ==
--- NOTE | ~2023-02-17 | CT_ITS ---
EXAMINATION: CT HEAD WITHOUT CONTRAST CLINICAL INFORMATION: Dizziness. Headache. COMPARISON: None available. TECHNIQUE: Contiguous axial imaging was performed from the skull-base to vertex without intravenous administration of contrast. This CT examination was performed using dose optimization techniques as appropriate, variously including the following: *Automated exposure control. *Adjustment of mA and/or kV according to patient size (this includes techniques or standardized protocols for targeted exams where dose is matched to indication/reason for exam; i.e. extremities or head). *Use of iterative reconstruction technique. DLP: 737 mGy-cm FINDINGS: The lateral, third and fourth ventricles are normally outlined. The cortical sulci and basal cisterns are normally outlined as well. There is no acute territorial defect, hemorrhage or midline shift. The extra-axial spaces are unremarkable. Calvarium: Intact. Maxillofacial Sinuses and Mastoids: Clear as visualized. CT/CT head/brain wo IV con IMPRESSION: No acute intracranial pathology.
--- NOTE | 2023-02-17 18:47 | ED_ITS ---
HPI - General Adult General Chief complaint: General Medical Stated complaint: high bp Time Seen by Provider: 02/17/23 22:45 Source: patient Mode of arrival: ambulatory Limitations: no limitations History of Present Illness HPI narrative: Patient is a 42-year-old female past medical history of migraine, anxiety, de pression, asthma presenting to emergency department for evaluation of headache and dizziness. Patient states that she had a posterior headache throughout the day which was alleviating with Tylenol. Orwell atypical from her normal migraine headache as they are typically frontal/ocular. Patient states that she was at work today she stood up and suddenly felt and she is unable to describe it. She endorses dizziness described as an unsteady feeling that lasted approximately 30 seconds. She asked one of her coworkers to check her blood pressure and it was 143/83, denies any history of hypertension. At this time she was sent home and advised to have further evaluation. Thus she presented to the emergency department. Denies fevers, chills, neck pain, neck stiffness, photophobia, phonophobia, nausea, vomiting, upper respiratory symptoms, chest pain, shortness of breath. Related Data Previous Rx's Medication Instructions Recorded ondansetron 4 mg disintegrating 4 mg PO Q8H 3 days #9 tabs 08/11/22 tablet Allergies Allergy/AdvReac Type Severity Reaction Status Date / Time latex Allergy Hives Verified 12/14/20 14:55 sulfamethoxazole Allergy Hives Verified 12/14/20 14:55 [From ] trimethoprim [From ] Allergy Hives Verified 12/14/20 14:55 NSAIDS (Non-Steroidal AdvReac Unknown Verified 12/14/20 14:55 Anti-Inflamma Review of Systems Review of Systems: Constitutional: No weight loss. No fever. No chills. No weakness. No fatigue. Eye: No swelling. No redness. ENT: No sore throat. No rhinorrhea. No nasal congestion. No sore throat. No difficulty swallowing. Skin: No rash. No itching. Cardiovascular: No chest pain. No chest pressure. No palpitations. No pedal ed tara. Respiratory: No shortness of breath. No cough. No sputum production. Gastrointestinal: No anorexia. No nausea. No vomiting. No diarrhea. No abdominal pain. No blood in stool. Genitourinary: No burning micturition. No urinary frequency. No incontinence. Neurologic: Positive headache. No dizziness. No pre-syncope/ syncope. No unilateral weakness. No ataxia. No numbness. No tingling. No change in bowel or bladder control. Musculoskeletal: No muscle pain. No back pain. No joint pain. No stiffness. Yes all other systems are reviewed and are negative [facility] Past Medical History Attestation statement: The following information was validated with the patient. Source: old records reviewed Medical History Asthma Solitary kidney Social History Social History Advance Directives: No Advance Directives Information Provided: Yes Physical Exam ED Vital Signs: Vital Signs - 24 hr 02/17/23 18:48 02/17/23 22:29 02/17/23 22:31 Temperature 97.3 F 97.9 F Pulse Rate 71 67 64 Respiratory Rate 18 Blood Pressure 126/89 135/56 L 122/66 Pulse Oximetry 100 100 Oxygen Delivery Method Room Air Room Air 02/17/23 22:33 02/17/23 22:34 Temperature Pulse Rate 63 65 Respiratory Rate Blood Pressure 132/80 120/75 Pulse Oximetry Oxygen Delivery Method BMI result Body Mass Index 31.0 Appearance: Alert.?Oriented to person, place and time. No acute distress.?Normal affect. Eyes: Pupils equal, round and reactive to light.? EOMI. No nystagmus. ENT: Pharynx normal.?? Neck: Normal inspection.? Neck supple.??No nuchal rigidity CVS: Heart sounds normal. Normal heart rate and rhythm.? Pulses normal.?? Respiratory: No respiratory distress.? Lung sounds clear to auscultation bilaterally?? Abdomen: Soft and non-tender. Normoactive bowel sounds. Skin: Skin warm and dry.? Normal skin color.? ? Extremities: No lower extremity edema.? No calf ttp? Neuro: Moves all extremities spontaneously. Sensation intact bilaterally. CN II- XII intact. No focal neuro deficits. Ambulates with normal steady gait. Course Course Course Narrative: This is an RME: Additional HPI, ROS, PE not included below will be deferred to primary provider. Patient is a 42 year old female presenting after not feeling well at work at 5:40. She explains she had a sudden headache at the back of her head and took her blood pressure and it was in the 148/83. She states she is feeling normal now. She had some dizziness but denies vision changes. NIH stroke scale 0. Plan: urine, labs, imaging Medical Decision Making Medical Decision Making [facility] Narrative: Patient is a 42-year-old female with past medical history of migraine headache, anxiety, depression, asthma presenting to emergency department for evaluation of brief episode of dizziness and generalized unwell feeling as per HPI. At the time of my examination she is overall well-appearing. Her headache has improved with the use of OTC Tylenol. Denies any dizziness at this time. No focal neurological deficits. No meningismus. Orthostatic vital signs were obtained which were negative. NIH stroke score of 0, lower suspicion for cerebellar stroke at this time. CT of the head reveals no acute intracranial pathology. CBC and CMP are overall unremarkable. Troponin 3.7, EKG reveals normal sinus rhythm with ventricular rate of 64, normal NV interval, QTC 408, no ST elevation, no ST depression, no T-wave inversion, at this time not consistent with ACS no acute ischemic findings.. No hypertension while in the emergency department. Symptoms at this time most consistent with tension headache versus migraine. Reviewed worrisome signs and symptoms that would warrant re- evaluation emergency department. All questions answered. Stable for discharge. Differential Diagnosis Differential Diagnoses: The differential diagnosis associated with the presentation includes (As noted above) Admission/Observation Consideration of admission/observation: Escalation of care including admission/observation considered (I considered admission for headache and dizziness, see narrative above for further detail) Lab Data [facility] Lab Attestation statement: I reviewed the patient's lab results. (See narrative above for further detail) 02/17/23 19:03 02/17/23 19:03 Labs: Lab Results 02/17/23 02/17/23 02/17/23 Range/Units 19:03 19:03 19:03 WBC 7.0 (4.8-10.8) X10*3/uL RBC 3.90 L (4.20-5.50) X10*6/uL Hgb 13.0 (12.0-16.0) g/dl Hct 36.8 L (37.0-47.0) % MCV 94.4 (80.0-98.0) fL MCH 33.3 H (27.0-33.0) pg MCHC 35.3 H (31.0-35.0) g/dl RDW 12.0 (11.0-16.0) % Plt Count 199 (160-400) X10*3/uL MPV 9.7 (9.4-12.3) fL Immature Gran % (Auto) 0.3 (0.0-0.4) % Neut % (Auto) 63.0 (45-73) % Lymph % (Auto) 27.6 (20-40) % [place] % (Auto) 7.1 (2-11) % Eos % (Auto) 1.7 (0-4) % Baso % (Auto) 0.3 (0-2) % Lymph # (Auto) 1.9 (1.2-4.9) X10*3/uL [place] # (Auto) 0.5 (0.1-1.2) X10*3/uL Eos # (Auto) 0.1 (0.0-0.4) X10*3/uL Baso # (Auto) 0.0 (0.0-0.2) X10*3/uL Abs Immat Gran (auto) 0.02 (0.00-0.03) X10*3/uL Absolute Neuts (auto) 4.4 (2.0-8.3) x10*3/uL Absolute Nucleated RBC 0.000 (0.0-0.012) X10*3/uL Nucleated RBC % (auto) 0.0 (0.0-0.2) /100WBC Sodium 137 (135-145) mmol/L Potassium 3.6 (3.3-5.1) mmol/L Chloride 105 (96-108) mmol/L Carbon Dioxide 24 (22-29) mmol/L Anion Gap 12 (12-20) BUN 13 (9-16) mg/dL Creatinine 0.83 (0.5-1.4) mg/dL Estim Creat Clear Calc 98.1 Estimated GFR > 60 Random Glucose 166 H (60-115) mg/dL Calcium 9.1 (8.4-10.2) mg/dL Magnesium 1.9 (1.6-2.6) mg/dL Total Bilirubin 0.6 (0.0-1.0) mg/dL AST 22 (5-31) U/L ALT 29 (0-31) U/L Alkaline Phosphatase 45 (39-117) U/L Troponin I High Sens 3.7 (<3.5-17.0) ng/L Total Protein 7.4 (6.5-8.0) g/dL Albumin 4.3 (3.5-5.0) g/dL Beta HCG, Quant < 2 mIU/mL Urine Color Urine Appearance Urine pH (5.0-9.0) Ur Specific Sylvester (1.005-1.025) Urine Protein (Neg-Trace) mg/dL Urine Glucose (UA) (Negative) mg/dL Urine Ketones (Negative) mg/dL Urine Blood (Negative) Urine Nitrite (Negative) Ur Leukocyte Esterase (Negative) Urine RBC (0-2) /HPF Urine WBC (0-5) /HPF Ur Squamous Epith Cells (0-2) /HPF Urine Bacteria (None Seen) Hyaline Casts (0-2) /LPF 02/17/23 Range/Units 20:46 WBC (4.8-10.8) X10*3/uL RBC (4.20-5.50) X10*6/uL Hgb (12.0-16.0) g/dl Hct (37.0-47.0) % MCV (80.0-98.0) fL MCH (27.0-33.0) pg MCHC (31.0-35.0) g/dl RDW (11.0-16.0) % Plt Count (160-400) X10*3/uL MPV (9.4-12.3) fL Immature Gran % (Auto) (0.0-0.4) % Neut % (Auto) (45-73) % Lymph % (Auto) (20-40) % [place] % (Auto) (2-11) % Eos % (Auto) (0-4) % Baso % (Auto) (0-2) % Lymph # (Auto) (1.2-4.9) X10*3/uL [place] # (Auto) (0.1-1.2) X10*3/uL Eos # (Auto) (0.0-0.4) X10*3/uL Baso # (Auto) (0.0-0.2) X10*3/uL Abs Immat Gran (auto) (0.00-0.03) X10*3/uL Absolute Neuts (auto) (2.0-8.3) x10*3/uL Absolute Nucleated RBC (0.0-0.012) X10*3/uL Nucleated RBC % (auto) (0.0-0.2) /100WBC Sodium (135-145) mmol/L Potassium (3.3-5.1) mmol/L Chloride (96-108) mmol/L Carbon Dioxide (22-29) mmol/L Anion Gap (12-20) BUN (9-16) mg/dL Creatinine (0.5-1.4) mg/dL Estim Creat Clear Calc Estimated GFR Random Glucose (60-115) mg/dL Calcium (8.4-10.2) mg/dL Magnesium (1.6-2.6) mg/dL Total Bilirubin (0.0-1.0) mg/dL AST (5-31) U/L ALT (0-31) U/L Alkaline Phosphatase (39-117) U/L Troponin I High Sens (<3.5-17.0) ng/L Total Protein (6.5-8.0) g/dL Albumin (3.5-5.0) g/dL Beta HCG, Quant mIU/mL Urine Color RED Urine Appearance Turbid Urine pH 5.5 (5.0-9.0) Ur Specific Sylvester >= 1.030 H (1.005-1.025) Urine Protein 300 (3+) H (Neg-Trace) mg/dL Urine Glucose (UA) 250 H (Negative) mg/dL Urine Ketones Negative (Negative) mg/dL Urine Blood Large (3+) H (Negative) Urine Nitrite Negative (Negative) Ur Leukocyte Esterase Negative (Negative) Urine RBC >20 H (0-2) /HPF Urine WBC 0-5 (0-5) /HPF Ur Squamous Epith Cells 0-2 (0-2) /HPF Urine Bacteria None Seen (None Seen) Hyaline Casts 0-2 (0-2) /LPF Radiology Impression Discussion of test interpretation with radiology: I have reviewed the radiologist's reading. Radiologist Impression: CT/CT head/brain wo IV con IMPRESSION: No acute intracranial pathology. Discharge Plan Discharge Clinical Impression: Headache Patient Disposition: Home, Self-Care Instructions: Acute Headache (ED) Additional Instructions: You can take Tylenol 500 mg, 2 tablets (1,000mg) every 4-6 hours as needed for pain, but not to exceed 3 doses daily (3,000mg). Follow-up with your primary care provider as needed Return back to emergency department any new or worsening symptoms or concerns. ? Prescriptions: No Action ondansetron 4 mg tablet,disintegrating 4 mg PO Q8H 3 Days Qty: 9 0RF Referrals: Christian Silva MD [Primary Care Provider] -
[2023-02-17 18:48] VITALS: BP 126/89; PULSE 71; RESP 18; TEMP 36.3; O2SAT 100; BMI 31.0
--- NOTE | 2023-02-17 18:50 | ECG_ITS ---
Test Reason : DIZZINESS Blood Pressure : / mmHG Vent. Rate : 064 BPM Atrial Rate : 064 BPM P-R Int : 128 ms QRS Dur : 088 ms QT Int : 396 ms P-R-T Axes : 019 037 039 degrees QTc Int : 408 ms Normal sinus rhythm Normal ECG When compared with ECG of 11-AUG-2022 14:43, No significant change was found Referred By: Yony Squires Electronically Signed By:SAMANTA DENNY
[2023-02-17 19:10] LABS: MANUAL DIFF FLAG NO
[2023-02-17 19:11] LABS: Basophils Percent Auto 0.3 % (0-2); Eosinophils Absolute Auto 0.1 X10*3/uL (0.0-0.4); Eosinophils Percent Auto 1.7 % (0-4); Hematocrit 36.8 % (37.0-47.0); Imm Gran Abs Auto 0.02 X10*3/uL (0.00-0.03); Imm Gran Pct Auto 0.3 % (0.0-0.4); Lymphocytes Absolute Auto 1.9 X10*3/uL (1.2-4.9); Lymphocytes Percent Auto 27.6 % (20-40); Mean Corpuscular HGB Conc 35.3 g/dl (31.0-35.0); Mean Corpuscular Hemoglobin 33.3 pg (27.0-33.0); Mean Corpuscular Volume 94.4 fL (80.0-98.0); Mean Platelet Volume 9.7 fL (9.4-12.3); Monocytes Absolute Auto 0.5 X10*3/uL (0.1-1.2); Monocytes Percent Auto 7.1 % (2-11); Neutrophils Absolute Auto 4.4 x10*3/uL (2.0-8.3); Platelet Count 199 X10*3/uL (160-400)
[2023-02-17 19:23] LABS: Alanine Aminotransferase 29 U/L (0-31); Albumin Level 4.3 g/dL (3.5-5.0); Alkaline Phosphatase 45 U/L (39-117); Anion Gap 12 (12-20); Aspartate Amino Transferase 22 U/L (5-31); Bilirubin Total 0.6 mg/dL (0.0-1.0); Blood Urea Nitrogen 13 mg/dL (9-16); Calcium 9.1 mg/dL (8.4-10.2); Carbon Dioxide 24 mmol/L (22-29); Chloride 105 mmol/L (96-108); Creatinine Clr Calc Pharmacy 98.1; Estimated Glomerular Filt Rate > 60; Glucose Random 166 mg/dL (60-115); Magnesium 1.9 mg/dL (1.6-2.6); Potassium 3.6 mmol/L (3.3-5.1); Sodium 137 mmol/L (135-145); Total Protein 7.4 g/dL (6.5-8.0)
[2023-02-17 19:31] LABS: Troponin-I High Sensitivity 3.7 ng/L (<3.5-17.0)
[2023-02-17 21:38] LABS: Appearance Urine Turbid; Color Urine RED; Glucose Urine UA 250 mg/dL (Negative); Leukocyte Esterase Urine Negative (Negative); Nitrite Urine Negative (Negative); PH 5.5 (5.0-9.0); Specific Gravity - Urine >= 1.030 (1.005-1.025); UMIC TRIGGER UACC YES; Urine Blood Large (3+) (Negative); Urine Ketones Negative (Negative); Urine Protein 300 (3+) mg/dL (Neg-Trace)
[2023-02-17 21:39] LABS: RBC Urine >20 /HPF (0-2); WBC Urine 0-5 /HPF (0-5)
[2023-02-17 21:40] LABS: Bacteria Urine None Seen (None Seen); Hyaline Casts Urine 0-2 /LPF (0-2); Squamous Epithelial Cell Urine 0-2 /HPF (0-2)
[2023-02-17 22:29] VITALS: BP 135/56; PULSE 67; TEMP 36.6; O2SAT 100
[2023-02-17 22:31] VITALS: BP 122/66; PULSE 64
[2023-02-17 22:33] VITALS: BP 132/80; PULSE 63
[2023-02-17 22:34] VITALS: BP 120/75; PULSE 65
--- NOTE | 2023-02-17 22:35 | PC.NURSE ---
this rn assumed care of pt from waiting room @ 2230. pt changed into hospital attire at this time awaiting to be seen by ed provider
[2023-02-17 23:46] LABS: HCG Quantitative < 2 mIU/mL
[2023-02-18 00:53] VITALS: BP 115/72; PULSE 58; RESP 18; TEMP 36.7; O2SAT 100
--- NOTE | 2023-02-18 00:58 | PC.NURSE ---
vss. pt ambulatory at discharge. pt calm and cooperative. pt provided with discharge packet. pt verbalized understanding of discharge plan
== END 2023-02-18 00:59 | disposition home or self-care (01) ==
PROVIDERS: Nurse Practitioner Family; Physician Assistant; Emergency Provider Emergency Medicine Emergency Medical Services; PCP Internal Medicine
DX: R51.9 Headache, unspecified (principal); R42 Dizziness and giddiness
CPT/HCPCS: 36415; 70450; 80053; 81001; 83735; 84484; 84702; 85025; 93005; 99284